=== PATIENT | male | born 1945 | race Caucasian/White ===

== ENCOUNTER 2017-10-14 07:46 | Emergency (ER) | payer MEDICARE, SELFPAY ==
[2017-10-14] VITALS (15 sets, daily range): BP systolic 76–105; BP diastolic 39–59; PULSE 92–103; RESP 9–23; TEMP 36.6–36.7; O2SAT 95–100; BMI 31.4
--- NOTE | 2017-10-14 07:55 | ED.WEAKNESS ---
HPI - Weakness General Chief complaint: Weakness Stated complaint: Dizzy Time Seen by Provider: 10/14/17 07:48 Source: patient and family Mode of arrival: EMS Limitations: no limitations History of Present Illness HPI Narrative: 72-year-old male currently undergoing chemotherapy treatment for pancreatic cancer here for evaluation of nausea vomiting and diarrhea last evening. Patient states that his last dose of chemotherapy was 2 weeks ago. He states that last evening he was at his normal state of health with his normal abdominal pain and states that last evening had 1 episode of vomiting that he sets was ?dark? and multiple episodes of ?dark? diarrhea. Called EMS this morning because he was feeling weak. EMS report that his systolic blood pressure was 70 upon their arrival. He did receive fluids prior to their arrival here in the emergency department. Patient was scheduled to receive chemotherapy today [facility]. Related Data Home Medications Medication Instructions Recorded Confirmed ASPIRIN (#ASPIR 81) 81 mg PO Q DAY #0 08/15/11 08/31/17 GLUC CORRIGAN DIPO CH/ISABEL CORRIGAN/C/FRANKLIN 1 cap PO BID #0 08/15/11 08/31/17 (Glucosamine-Chondroitin Capsul) Multivitamin, Minerals, and 1 tab PO Q DAY #0 08/15/11 08/31/17 (#CENTRUM SILVER) [FISH OIL] 1,400 mg PO QDAY #0 08/15/11 08/31/17 ranitidine HCl 150 mg PO QDAYP PRN #0 04/28/16 08/31/17 [id number] [Creon] 1 ecc PO #0 03/03/17 08/31/17 Previous Rx's Medication Instructions Recorded fluticasone 2 spray INTRANASAL QDAY #1 bot 04/28/16 clotrimazole 1 gm TOPICAL BID #14.1 gm 12/07/16 Glucose: Home Monitor ea 5XD #1 05/05/17 Galliano ea 5XD #450 05/05/17 Test Strips - Freestyle 0 item 5XD #450 05/05/17 lisinopril 20 mg PO QDAY #90 tab 05/05/17 metformin 1,000 mg PO BIDCC #180 tab 05/05/17 atorvastatin [Lipitor] 20 mg PO QDAY #90 tab 05/06/17 Lancets 0 dev SEE INSTRUCTIONS #450 05/08/17 insulin aspart U-100 [Novolog 10 unit SQ TID #1 box 05/25/17 Flexpen U-100 Insulin] insulin detemir U-100 [Levemir 90 u SQ QDAY #27 syr 05/25/17 FlexTouch U-100 Insuln] polyethylene glycol 3350 17 17 gram PO DAILY 30 Days #510 gram 08/31/17 gram/dose oral powder tamsulosin 0.4 mg capsule 0.4 mg PO Q24H #30 cap 08/31/17 Allergies Allergy/AdvReac Type Severity Reaction Status Date / Time Sulfa (Sulfonamide Allergy Mild 40yrs ago, Verified 08/31/17 09:37 Antibiotics) unknown Review of Systems Review of Systems All systems reviewed & are unremarkable except as noted in HPI and below Constitutional Denies chills, Reports fatigue, Denies fever(s), Denies headache(s), Reports lethargy and Reports weakness Eyes Denies blurry vision and Denies irritation ENT Ears, Nose, Mouth, and Throat: Denies change in voice, Denies vertigo, Denies dizziness, Denies headache(s), Denies neck pain and Denies sore throat Cardiovascular Denies chest pain, Denies syncope, Denies irregular heart rhythm, Denies lightheadedness, Denies palpitations, Denies dyspnea, Denies dyspnea on exertion and Denies orthopnea Respiratory Denies cough, Denies dyspnea, Denies dyspnea on exertion and Denies wheezing Gastrointestinal Gastrointestinal: Reports abdominal pain, Reports melena, Reports change in stool character, Reports diarrhea, Reports nausea and Reports vomiting Genitourinary Denies hematuria, Denies flank pain, Denies urinary incontinence and Denies urinary urgency Musculoskeletal Denies myalgias and Denies neck pain Integumentary/Breasts Denies pruritus, Denies erythema, Denies rash and Denies wounds Neurologic Denies behavioral changes, Denies vertigo, Denies dizziness, Denies syncope, Denies headache(s) and Reports weakness Psychiatric Denies behavioral changes Endocrine Reports fatigue and Denies palpitations Hematologic/Lymphatic Denies easy bleeding and Denies easy bruising Allergic/Immunologic Denies urticaria and Denies wheezing PFSH Surgical History History of cataract removal with insertion of prosthetic lens Status post bunionectomy Status post colonoscopy Family History Brother Diabetes mellitus Father Congestive heart failure Diabetes mellitus Heart disease Grandfather Heart disease Grandmother Cancer Mother Age: 92 Hypertension Grandfather Hypertension Stroke Sister Diabetes mellitus Social History Smoking Status: Never smoker Exam Initial Vital Signs Initial Vital Signs: Vital Signs Temperature 97.8 F 10/14/17 07:50 Pulse Rate 100 H 10/14/17 07:50 Respiratory Rate 19 10/14/17 07:50 Blood Pressure 105/55 L 10/14/17 07:50 Pulse Oximetry 100 10/14/17 07:50 Const General: cooperative and well developed Nutritional Appearance: well nourished Orientation: alert, awake, oriented x3 and not confused HENMT Head: normocephalic and atraumatic Ears: hearing grossly normal bilaterally Nose: external nose normal Face and sinus: normal facial exam Mouth: oral mucosae normal and moist mucous membranes Chest Chest: normal inspection of the chest Resp Effort & Inspection: normal respiratory effort, able to speak in complete sentences, no respiratory distress and no use of accessory muscles Auscultation: clear to auscultation bilaterally, no rales, no rhonchi and no wheezes Cardio Rate: regular rate Rhythm: regular rhythm Heart Sounds: no click, no gallops, no murmurs and no rubs Pulses: normal peripheral pulses GI Inspection: non-distended Palpation: soft, No firm, No guarding and tender (Diffuse) Back/Spine/Pelvis Back: No CVA tenderness Skin General: no rashes or lesions noted, No jaundice and No petechiae Neuro General: alert, awake and oriented x3 Cognition: normal cognition Speech: speech normal Extrem General: full ROM, no clubbing, cyanosis or edema, no pedal edema and no calf tenderness Psych Appearance: grossly normal and well kempt Mood: congruent mood Attitude: cooperative Course Orders Ordered: ED Orders 10/14/17 07:49 EKG-12 Lead Routine 10/14/17 07:53 Basic Metabolic Panel Stat Complete Blood Count AUTO DIFF Stat Hepatic (Liver) Panel Stat Lipase Stat Partial Thromboplastin Time Stat Prothrombin Time INR Stat 10/14/17 08:15 Ammonia (NH3) Stat Lactate (Lactic Acid) Stat Packed Cells Stat Type and Screen Stat Sodium Chloride (Normal Saline 0.9%) 1,000 mls @ 500 mls/hr IV BOLUS ONE Stop: 10/14/17 09:53 Last Admin: 10/14/17 08:29 Dose: 500 mls/hr Pantoprazole Sodium 80 mg/ (Sodium Chloride) 100 mls @ 10 mls/hr IV NOW ONE Stop: 10/14/17 18:06 Last Admin: 10/14/17 08:30 Dose: 10 mls/hr Pantoprazole Sodium 80 mg/ (Sodium Chloride) 100 mls @ 10 mls/hr IV CONT EMEKA Last Admin: 10/14/17 08:30 Dose: Not Given Discontinued Medications Ondansetron HCl (Zofran) 4 mg IV NOW ONE Stop: 10/14/17 08:08 Last Admin: 10/14/17 08:29 Dose: 4 mg Vital Signs - 8 hr 10/14/17 07:50 10/14/17 08:15 Temperature 97.8 F Pulse Rate 100 H 100 H Respiratory Rate 19 Blood Pressure 105/55 L Blood Pressure [Right Arm] 104/52 L Pulse Oximetry 100 99 MDM - Weakness Lab Data Result diagrams: 10/14/17 07:53 10/14/17 07:53 Lab Results 10/14/17 10/14/17 10/14/17 Range/Units 07:53 07:53 07:53 WBC 7.9 (4.5-11.0) X10^3/uL RBC 3.44 L (4.5-5.9) X10^6/uL Hgb 10.2 L (13.5-17.5) g/dL Hct 30.5 L (41-53) % MCV 88.7 (80-100) fL MCH 29.7 (26-34) PG MCHC 33.5 (30-36) % RDW 14.1 (11.6-14.8) % Plt Count 276 (150-400) X10^3/uL Neut % (Auto) 81.9 H (50-75) % Lymph % (Auto) 12.0 L (25-40) % [place] % (Auto) 5.8 (3-14) % Eos % (Auto) 0.0 L (2-4) % Baso % (Auto) 0.3 (0-2) % Neut # (Auto) 6500 H (4740-2458) /uL PT 12.3 (10.1-12.7) SECONDS INR 1.1 (0.9-1.3) APTT 29 D (26.4-36.2) SECONDS Sodium 131 L (137-145) mmol/L Potassium 5.0 (3.4-5.1) mmol/L Chloride 99 (98-107) mmol/L Carbon Dioxide 24 (22-32) mmol/L BUN 28 H (9-20) mg/dL Creatinine 0.60 L (0.66-1.25) mg/dL Estimated GFR > 60.0 (>60) mL/min BUN/Creatinine Ratio 46.7 H (6-22) Glucose 303 H (80-110) mg/dL Lactate (0.7-2.1) mmol/L Calcium 8.8 (8.4-10.2) mg/dL Total Bilirubin (0.2-1.3) mg/dL Conjugated Bilirubin (0.0-0.3) md/dL Unconjugated Bilirubin (0.0-1.1) mg/dL AST (17-59) IU/L ALT (21-72) IU/L Alkaline Phosphatase (38-126) U/L Ammonia (9-30) umol/L Total Protein (6.3-8.2) g/dL Albumin (3.5-5.0) g/dL Globulin (1.7-4.1) g/dL Albumin/Globulin Ratio (1.0-2.8) Lipase (23-300) U/L Crossmatch 10/14/17 10/14/17 10/14/17 Range/Units 07:53 08:15 08:15 WBC (4.5-11.0) X10^3/uL RBC (4.5-5.9) X10^6/uL Hgb (13.5-17.5) g/dL Hct (41-53) % MCV (80-100) fL MCH (26-34) PG MCHC (30-36) % RDW (11.6-14.8) % Plt Count (150-400) X10^3/uL Neut % (Auto) (50-75) % Lymph % (Auto) (25-40) % [place] % (Auto) (3-14) % Eos % (Auto) (2-4) % Baso % (Auto) (0-2) % Neut # (Auto) (6926-2363) /uL PT (10.1-12.7) SECONDS INR (0.9-1.3) APTT (26.4-36.2) SECONDS Sodium (137-145) mmol/L Potassium (3.4-5.1) mmol/L Chloride (98-107) mmol/L Carbon Dioxide (22-32) mmol/L BUN (9-20) mg/dL Creatinine (0.66-1.25) mg/dL Estimated GFR (>60) mL/min BUN/Creatinine Ratio (6-22) Glucose (80-110) mg/dL Lactate 1.4 (0.7-2.1) mmol/L Calcium (8.4-10.2) mg/dL Total Bilirubin 0.5 (0.2-1.3) mg/dL Conjugated Bilirubin 0.0 (0.0-0.3) md/dL Unconjugated Bilirubin 0.2 (0.0-1.1) mg/dL AST 18 (17-59) IU/L ALT 43 (21-72) IU/L Alkaline Phosphatase 95 (38-126) U/L Ammonia < 9.0 L (9-30) umol/L Total Protein 5.0 L (6.3-8.2) g/dL Albumin 2.9 L (3.5-5.0) g/dL Globulin 2.1 (1.7-4.1) g/dL Albumin/Globulin Ratio 1.4 (1.0-2.8) Lipase < 10 L (23-300) U/L Crossmatch 10/14/17 Range/Units 08:15 WBC (4.5-11.0) X10^3/uL RBC (4.5-5.9) X10^6/uL Hgb (13.5-17.5) g/dL Hct (41-53) % MCV (80-100) fL MCH (26-34) PG MCHC (30-36) % RDW (11.6-14.8) % Plt Count (150-400) X10^3/uL Neut % (Auto) (50-75) % Lymph % (Auto) (25-40) % [place] % (Auto) (3-14) % Eos % (Auto) (2-4) % Baso % (Auto) (0-2) % Neut # (Auto) (6709-1520) /uL PT (10.1-12.7) SECONDS INR (0.9-1.3) APTT (26.4-36.2) SECONDS Sodium (137-145) mmol/L Potassium (3.4-5.1) mmol/L Chloride (98-107) mmol/L Carbon Dioxide (22-32) mmol/L BUN (9-20) mg/dL Creatinine (0.66-1.25) mg/dL Estimated GFR (>60) mL/min BUN/Creatinine Ratio (6-22) Glucose (80-110) mg/dL Lactate (0.7-2.1) mmol/L Calcium (8.4-10.2) mg/dL Total Bilirubin (0.2-1.3) mg/dL Conjugated Bilirubin (0.0-0.3) md/dL Unconjugated Bilirubin (0.0-1.1) mg/dL AST (17-59) IU/L ALT (21-72) IU/L Alkaline Phosphatase (38-126) U/L Ammonia (9-30) umol/L Total Protein (6.3-8.2) g/dL Albumin (3.5-5.0) g/dL Globulin (1.7-4.1) g/dL Albumin/Globulin Ratio (1.0-2.8) Lipase (23-300) U/L Crossmatch See Detail ECG Data Attestation: I personally reviewed and interpreted this ECG as follows: Prior ECG tracings: not available for review Interpretation: Time 0749 hr Sinus rhythm Ventricular rate in 99 Normal axis Normal intervals Normal QRS No ST T wave changes MDM Narrative Medical decision making narrative: Patient arrived with a systolic blood pressure of 105. Heart rate in the high 90s. Did vomit red material this morning. Did not gastroccult this. Given his history and physical I suspect that this is a upper GI bleed. Patient not in respiratory distress. Was given Zofran. H and H 02/23. Started on Protonix. Patient has been stable here in the emergency department. Has had a couple more episodes of vomiting however states that he feels much better now. I discussed the case with Dr. Wylie with Internal Medicine at [facility] who accepts the patient in transfer. Will hold on blood transfusion for now. Patient and were informed of plan. They expressed understanding and agreement. Discharge Plan Departure Prescriptions: No Action ASPIRIN (#ASPIR 81) 81 mg PO Q DAY Qty: 0 RF: 0 GLUC CORRIGAN DIPO CH/ISABEL CORRIGAN/C/FRANKLIN (Glucosamine-Chondroitin Capsul) 1 cap PO BID Qty: 0 RF: 0 [FISH OIL] 1,400 mg PO QDAY Qty: 0 RF: 0 Multivitamin, Minerals, and (#CENTRUM SILVER) 1 tab PO Q DAY Qty: 0 RF: 0 fluticasone 16 GM spray,suspension 2 spray Intranasal QDAY Qty: 1 RF: 3 ranitidine HCl 150 MG tablet 150 mg PO QDAYP PRNQty: 0 RF: 0 clotrimazole 1 % cream 1 gm Topical BID Qty: 14.1 RF: 1 [id number] [Creon] 36,000 UNITS capsule,delayed release(DR/EC) 1 ecc PO Qty: 0 RF: 0 lisinopril 20 MG tablet 20 mg PO QDAY Qty: 90 RF: 3 metformin 1,000 MG tablet 1,000 mg PO BIDCC Qty: 180 RF: 3 Galliano 5XD Qty: 450 RF: 3 Glucose: Home Monitor 5XD Qty: 1 RF: 0 Test Strips - Freestyle 5XD Qty: 450 RF: 3 atorvastatin [Lipitor] 20 MG tablet 20 mg PO QDAY Qty: 90 RF: 3 Lancets SEE INSTRUCTIONS Qty: 450 RF: 3 insulin aspart U-100 [Novolog Flexpen U-100 Insulin] 100 UNIT/1 ML insulin pen 10 unit SQ TID Qty: 1 RF: 3 insulin detemir U-100 [Levemir FlexTouch U-100 Insuln] 100 UNIT/1 ML insulin pen 90 u SQ QDAY Qty: 27 RF: 3 polyethylene glycol 3350 [Miralax] 17 gram/dose powder 17 gram PO DAILY 30 Days Qty: 510 RF: 1 tamsulosin [Flomax] 0.4 mg capsule,extended release 24hr 0.4 mg PO Q24H Qty: 30 RF: 3
[2017-10-14 08:07] LABS: Add Manual Diff / Slide Review NO; Basophils Percent Auto 0.3 % (0-2); Hematocrit 30.5 % (41-53); Hemoglobin 10.2 g/dL (13.5-17.5); INR 1.1 (0.9-1.3); Mean Corpuscular HGB Conc 33.5 % (30-36); Mean Corpuscular Hemoglobin 29.7 PG (26-34); Mean Corpuscular Volume 88.7 fL (80-100); Monocytes Percent Auto 5.8 % (3-14); Neutrophils Absolute Auto 6500 /uL (3000-5900); Neutrophils Percent Auto 81.9 % (50-75); Platelet Count 276 X10^3/uL (150-400); Prothrombin Time 12.3 SECONDS (10.1-12.7); Red Blood Cell Count 3.44 X10^6/uL (4.5-5.9); Red Cell Distribution Width 14.1 % (11.6-14.8); White Blood Cell Count 7.9 X10^3/uL (4.5-11.0)
[2017-10-14 08:10] LABS: PTT Partial Thromboplastin Tim 29 SECONDS (26.4-36.2)
[2017-10-14 08:13] LABS: BUN Creatinine Ratio 46.7 (6-22); Blood Urea Nitrogen 28 mg/dL (9-20); Calcium 8.8 mg/dL (8.4-10.2); Carbon Dioxide 24 mmol/L (22-32); Chloride 99 mmol/L (98-107); Estimated Glomerular Filt Rate > 60.0 mL/min (>60); Glucose 303 mg/dL (80-110); HEMOLYSIS 30 (0-50); Sodium 131 mmol/L (137-145)
[2017-10-14 08:14] LABS: Alanine Aminotransferase 43 IU/L (21-72); Albumin 2.9 g/dL (3.5-5.0); Albumin Globulin Ratio 1.4 (1.0-2.8); Alkaline Phosphatase 95 U/L (38-126); Aspartate Aminotransferase 18 IU/L (17-59); Bilirubin Total 0.5 mg/dL (0.2-1.3); Bilirubin Unconjugated 0.2 mg/dL (0.0-1.1); Globulin 2.1 g/dL (1.7-4.1); HEMOLYSIS 30 (0-50); Lipase < 10 U/L (23-300)
[2017-10-14] MEDS: ONDANSETRON 4 MG/2 ML INJ IV (08:29)
[2017-10-14] MEDS: SODIUM CHLORIDE 0.9% 1,000 ML 500 ML IV (08:29)
[2017-10-14] MEDS: PANTOPRAZOLE 80 MG in SODIUM CHLORIDE 0.9% 100 ML 10 ML IV (08:30)
[2017-10-14 08:39] LABS: Lactate (Lactic Acid) 1.4 mmol/L (0.7-2.1)
[2017-10-14 08:40] LABS: Ammonia (NH3) < 9.0 umol/L (9-30)
--- NOTE | 2017-10-14 09:07 | PC.NURSE ---
1:1 care since arrival. Hypotensive. Actively having BRB emesis. Meds helping this
[2017-10-14] MEDS: HYDROMORPHONE 0.5 MG INJ IV (09:17)
--- NOTE | 2017-10-14 09:51 | PC.NURSE ---
Per , states not to start blood. Per req not.
--- NOTE | 2017-10-14 10:03 | PC.NURSE ---
Patient on his L side with BP on his R arm. Patient with Lab. will recheck when patient on back
[2017-10-14 10:14] LABS: Hematocrit 27.6 % (41-53); Hemoglobin 9.2 g/dL (13.5-17.5)
--- NOTE | 2017-10-14 10:36 | PC.NURSE ---
Per , Start 1 unit of PRBC's now for transport
--- NOTE | 2017-10-14 11:04 | PC.NURSE ---
To transfer to . Blood running. Stable.
== END 2017-10-14 11:20 | disposition short-term general hospital (02) ==
PROVIDERS: Emergency Provider Emergency Medicine; PCP Family Medicine
DX: K92.2 Gastrointestinal hemorrhage, unspecified (principal)
CPT/HCPCS: 36000; 36415; 36430; 36591; 80048; 80076; 82140; 83605; 83690; 85014; 85018; 85025; 85610; 85730; 86850; 86900; 86901; 93005; 93010; 93041; 96365; 96366; 96375; 99285; 99291; 99292; P9016; C9113; J1170; J2405

== ENCOUNTER → 2017-12-24 15:30 | Oncology outpatient (ONC) | payer MEDICARE, SELFPAY ==
[2017-10-02 15:51] VITALS: BP 125/73; PULSE 72; RESP 16; TEMP 37; O2SAT 100
--- NOTE | 2017-10-15 12:25 | PC.NURSE ---
Pt due to come for pump disconnect 10/16/17 from outside facility. called to report he was hospitalized and did not receive his chemo so did not have pump connected.Appt cancelled
== END ==
PROVIDERS: PCP Family Medicine; Visit Provider Family Medicine
DX: Z45.2 Encounter for adjustment and management of vascular access device (principal); C25.9 Malignant neoplasm of pancreas, unspecified
CPT/HCPCS: 96523

== ENCOUNTER 2018-01-08 15:48 | Inpatient (IN) | payer MEDICARE, SELFPAY ==
[2018-01-08] VITALS (8 sets, daily range): BP systolic 67–133; BP diastolic 42–59; PULSE 122–133; RESP 22–32; TEMP 35.9–36.7; O2SAT 95–98; BMI 28.9
--- NOTE | 2018-01-08 16:09 | ED.ABDPAIN ---
HPI - Abdominal Pain General Chief Complaint: Abdominal Pain Stated Complaint: Pancreatic Cancer, Increased pain / confusion Time Seen by Provider: 01/08/18 16:08 Source: patient, family and EMS Mode of arrival: EMS History of Present Illness HPI narrative: Patient is a 72-year-old male with end-stage pancreatic cancer. He is brought in for increased abdominal pain. There is talk of hospice per family but he has not yet admitted to hospice. He had paracentesis 2 days ago with minimal relief, family feels like his abdomen has reaccumulated all the fluid quite quickly. He has had recurrent GI bleeding which she was sent down to [facility]. Family states that they think they have this under control. They deny any blood in stool or hematemesis. He seems to be declining rather quickly over the last 2 days. Today his pain is much more out of control he is hypotensive and tachycardic as well. Blood pressure for EMS systolic in the 60s of fluid was started. MD complaint: abdominal pain Related Data Home Medications Medication Instructions Recorded Confirmed Centrum Silver 1 tab PO Q DAY #0 08/15/11 12/21/17 [FISH OIL] 1,400 mg PO QDAY #0 08/15/11 12/21/17 aspirin 81 mg PO DAILY #0 08/15/11 12/21/17 ranitidine HCl 150 mg PO QDAYP PRN #0 04/28/16 12/21/17 Glucose: Home Monitor 1 ea MISCELLANEOUS 5XD 10/14/17 12/21/17 [place] 1 ea 5XD 10/14/17 12/21/17 dexamethasone 1 tab PO DIRECTED 10/14/17 12/21/17 insulin detemir U-100 [Levemir 45 units SQ QPM 10/14/17 12/21/17 FlexTouch U-100 Insuln] [id number]-jshrqqk [Creon] 1 dose PO DIRECTED 10/14/17 12/21/17 lorazepam 0.5 mg PO DIRECTED 10/14/17 12/21/17 ondansetron 1 tab TRANSLINGUAL Q8H PRN 10/14/17 12/21/17 prochlorperazine maleate 1 tab PO Q6H PRN 10/14/17 12/21/17 [id number]-cdokdbub-stihzqs 1 cap PO QD-TID PRN 10/30/17 12/21/17 36,000-114,000-180,000 unit capsule,delay rel polyethylene glycol 3350 17 17 gram PO DAILY gram 10/30/17 12/21/17 gram/dose oral powder polyethylene glycol powder each MISC 10/30/17 12/21/17 simethicone 125 mg capsule 125 mg PO BID-QID PRN 10/30/17 12/21/17 acetaminophen 500 mg tablet 500 mg PO Q4-6H PRN tab 12/21/17 12/21/17 bethanechol chloride 10 mg tablet 10 mg PO TID tab 12/21/17 12/21/17 finasteride 5 mg tablet 5 mg PO DAILY 12/21/17 12/21/17 hydrocodone 5 mg-acetaminophen 325 1 tab PO Q4-6H PRN 12/21/17 12/21/17 mg tablet Previous Rx's Medication Instructions Recorded fluticasone 2 spray INTRANASAL QDAY #1 bot 04/28/16 clotrimazole 1 gm TOPICAL BID #14.1 gm 12/07/16 Test Strips - Freestyle 0 item 5XD #450 05/05/17 lisinopril 20 mg PO QDAY #90 tab 05/05/17 metformin 1,000 mg PO BIDCC #180 tab 05/05/17 atorvastatin [Lipitor] 20 mg PO QDAY #90 tab 05/06/17 Lancets 0 dev SEE INSTRUCTIONS #450 05/08/17 tamsulosin 0.4 mg capsule 0.4 mg PO Q24H #30 cap 08/31/17 pantoprazole 40 mg tablet,delayed 40 mg PO BID #14 tab 11/04/17 release sucralfate 1 gram tablet 1 gram PO Q6H #28 tab 11/04/17 insulin aspart U-100 100 unit/mL 10 unit SUBCUT TID #15 ml 01/04/18 subcutaneous pen Allergies Allergy/AdvReac Type Severity Reaction Status Date / Time Sulfa (Sulfonamide Allergy Mild 40yrs ago, Verified 01/08/18 15:55 Antibiotics) unknown morphine AdvReac Hallucinati Verified 01/08/18 15:55 ng Review of Systems Review of Systems All systems reviewed & are unremarkable except as noted in HPI and below Constitutional Denies chills and Denies fatigue Cardiovascular Denies chest pain Gastrointestinal Gastrointestinal: Reports as per HPI and Reports abdominal pain Integumentary/Breasts Denies pruritus, Denies erythema, Denies rash and Denies wounds Neurologic Denies confusion Psychiatric Denies confusion Endocrine Denies fatigue [facility] Medical History Diabetes mellitus (Chronic ~2004) Fractures (Chronic ~2004) Hyperlipidemia (Chronic) Hypertension (Chronic) Recurrent sinusitis (Chronic) Shoulder pain (Chronic ~2013) Chicken pox (Resolved ~1955) Measles (Resolved ~1953) Mumps (Resolved ~1952) Rheumatic fever (Resolved ~1950) Surgical History Anesthesia (Resolved) Status post bunionectomy (Resolved ~1997) Tibial plateau fracture (Resolved ~2005) History of cataract removal with insertion of prosthetic lens Status post colonoscopy Family History: Reviewed 01/08/18 by Jonathan Estes MD Social History household members: spouse Smoking Status: Former smoker Exam Initial Vital Signs Initial Vital Signs: Vital Signs Temperature 96.7 F L 01/08/18 15:52 Pulse Rate 133 H 01/08/18 15:52 Respiratory Rate 32 H 01/08/18 15:52 Blood Pressure 82/56 L 01/08/18 15:52 Pulse Oximetry 95 01/08/18 15:52 Const General: cooperative, in distress (Appears in pain), frail appearing and ill appearing Orientation: alert and awake HENAR Head: normal to inspection and normocephalic Eyes General: appearance normal, both eyes and all related structures Neck Neck: normal visual inspection, full ROM and no meningeal signs Chest Chest: normal inspection of the chest Resp Effort & Inspection: normal respiratory effort Auscultation: clear to auscultation bilaterally Cardio Rate: tachycardic Heart Sounds: S1 normal and S2 normal GI Inspection: normal to inspection Palpation: ascites (Distended grossly tender) Skin General: no rashes or lesions noted, elasticity normal and turgor normal Neuro General: alert and awake Extrem General: normal to inspection and full ROM Course Orders Ordered: ED Orders 01/08/18 17:33 Education, smoking cessation ONGOING Hydromorphone HCl (Dilaudid) 0.5 mg IV Q2HR PRN PRN Reason: Pain, Moderate (4-6) Last Admin: 01/08/18 16:10 Dose: 0.5 mg HYDROMORPHONE [employer]ING [employer] (Dilaudid 6 Mg/30 Ml) 6 mg in 30 mls @ 0.5 mls/hr IV Q8HR EMEKA Lorazepam (Ativan) 1 mg IV Q4HR PRN PRN Reason: Anxiety Naloxone HCl (Narcan) 0.2 mg IV Q2MIN PRN PRN Reason: Opiate Reversal Naloxone HCl (Narcan) 0.2 mg IV Q2MIN PRN; Protocol PRN Reason: Opiate Reversal Ondansetron HCl (Zofran) 4 mg IV Q6HR PRN PRN Reason: Nausea And Vomiting Discontinued Medications Ondansetron HCl (Zofran) 4 mg IV NOW ONE Stop: 01/08/18 16:12 Last Admin: 01/08/18 16:11 Dose: 4 mg Vital Signs - 8 hr 01/08/18 15:52 01/08/18 16:20 01/08/18 16:30 Temperature 96.7 F L Pulse Rate 133 H 131 H 128 H Respiratory Rate 32 H 28 H 32 H Blood Pressure 82/56 L Blood Pressure [Right Arm] 86/59 L 81/46 L Pulse Oximetry 95 98 01/08/18 16:45 01/08/18 17:00 01/08/18 17:12 Temperature Pulse Rate 122 H 123 H 125 H Respiratory Rate 32 H 31 H 22 Blood Pressure Blood Pressure [Right Arm] 92/51 L 67/45 L 76/42 L Pulse Oximetry 98 MDM - Abdominal Pain MDM Narrative Medical decision making narrative: Patient remains hypotensive tachycardic. Dilaudid does seem to make him more comfortable. I did speak with family about goals of care. Comfort only. They are aware of grave prognosis. Dr. Estes is in the ED to speak and evaluate patient. Discharge Plan Departure Patient Disposition: Admitted As Inpatient Clinical Impression: Metastasis from pancreatic cancer Discharge Date/Time: 01/08/18 17:22 Interventions: ED Discharge Assessment Last Done: 01/08/18 17:22 Admit Date/Time: 01/08/18 17:12 Admit Provider: Jonathan Estes
[2018-01-08] MEDS: HYDROMORPHONE 1 MG INJ 0.5 MG IV (16:10)
[2018-01-08] MEDS: ONDANSETRON 4 MG/2 ML INJ IV ×2 (16:11→22:06)
--- NOTE | 2018-01-08 16:24 | PC.NURSE ---
discussed w/ and children goals of care. Pt is DNR, no further curative treatment. Pt is comfort measures only. Medicated for pain and nausea. Family in agreement w/ discontinue iv fluids / monitoring and using pain / nausea as the concern at this time.
--- NOTE | 2018-01-08 17:25 | PC.NURSE ---
Monitoring discontinued. Dr. Estes in to see patient. Pt appears more comfortable.
--- NOTE | 2018-01-08 17:45 | P.HP_ITS ---
History of Present Illness Date Patient Seen: 01/08/18 Time Patient Seen: 17:00 Chief complaint: Pancreatic Cancer, Increased pain / confusion Narrative: 72-year-old male patient longstanding patient of mine over the last 12 years. Patient over the last year and a half was diagnosed with pancreatic cancer. He has undergone chemotherapy biliary stenting in treatment for this. Despite his maximal medical therapy with Oncology pancreatic specialist down at he has had quite a rough go lately. As of about a week ago. He has had increasing abdominal distension and significant abdominal pain. They elected no longer to treat with chemotherapy as he was too weak. His last paracentesis 48 hr ago provided minimal relief in his abdomen felt still painful and distended. Over the past 48 hr he has had difficulty with increasing pain increasing secretions coughing and phlegm. Today he became very weak and listless. His family states he was a little bit confused. He has had ongoing abdominal pain any now says it 7/10 on the pain scale. On my evaluation of the patient in the emergency room he is quite tachypneic. He is tachycardic. He has got a weak cough. And he is vomiting up by bile. His is at his bedside as well as his daughter son and [id number]. We have had a number of conversations in the past about his advance care wishes. And office visit 2 weeks ago patient at that time was not ready for hospice although we have had those ongoing discussions and have discussed multiple times his palliative care and wishes. Family care conference was initiated in the emergency room to discuss and determine what the best next plan for him is. Discussed about aggressive measures transfer the patient to be . They felt maybe this was not necessary as well as the patient. We discussed about the further evaluation with laboratory testing and x-ray testing IV fluids etc. They are also aware that his recent pancreatic specialist oncologist down a of told him that he has in the advanced stages of pancreatic cancer and they are running out of treatment options. After discussion with patient family and on review of his healthcare wishes. The election was made to proceed with hospitalization due to his significant secretions vomited up bile weakness and low blood pressure for further comfort which there and hot able to provide a home. Patient History Medical History Diabetes mellitus (Chronic ~2004) Fractures (Chronic ~2004) Hyperlipidemia (Chronic) Hypertension (Chronic) Recurrent sinusitis (Chronic) Shoulder pain (Chronic ~2013) Chicken pox (Resolved ~1955) Measles (Resolved ~1953) Mumps (Resolved ~1952) Rheumatic fever (Resolved ~1950) Surgical History Anesthesia (Resolved) Status post bunionectomy (Resolved ~1997) Tibial plateau fracture (Resolved ~2005) History of cataract removal with insertion of prosthetic lens Status post colonoscopy Family & Social History Family History: Reviewed 01/08/18 by Jonathan Estes MD Safety & Behavioral: Feels Safe in Current Yes Environment Been Physically Hurt or No Threatened By a Person Tobacco & Substance use: Smoking Status Never smoker alcohol intake frequency 0-2 drinks per day Substance Use Type does not use Meds Home Medications Medication Instructions Recorded Confirmed Type Centrum Silver 1 tab PO Q DAY #0 08/15/11 12/21/17 History [FISH OIL] 1,400 mg PO QDAY #0 08/15/11 12/21/17 History aspirin 81 mg PO DAILY #0 08/15/11 12/21/17 History fluticasone 2 spray INTRANASAL QDAY #1 bot 04/28/16 12/21/17 Rx ranitidine HCl 150 mg PO QDAYP PRN #0 04/28/16 12/21/17 History clotrimazole 1 gm TOPICAL BID #14.1 gm 12/07/16 12/21/17 Rx Test Strips - Freestyle 0 item 5XD #450 05/05/17 12/21/17 Rx lisinopril 20 mg PO QDAY #90 tab 05/05/17 12/21/17 Rx metformin 1,000 mg PO BIDCC #180 tab 05/05/17 12/21/17 Rx atorvastatin [Lipitor] 20 mg PO QDAY #90 tab 05/06/17 12/21/17 Rx Lancets 0 dev SEE INSTRUCTIONS #450 05/08/17 12/21/17 Rx tamsulosin 0.4 mg capsule 0.4 mg PO Q24H #30 cap 08/31/17 12/21/17 Rx Glucose: Home Monitor 1 ea MISCELLANEOUS 5XD 10/14/17 12/21/17 History [place] 1 ea 5XD 10/14/17 12/21/17 History dexamethasone 1 tab PO DIRECTED 10/14/17 12/21/17 History insulin detemir U-100 [Levemir 45 units SQ QPM 10/14/17 12/21/17 History FlexTouch U-100 Insuln] [id number] [Creon] 1 dose PO DIRECTED 10/14/17 12/21/17 History lorazepam 0.5 mg PO DIRECTED 10/14/17 12/21/17 History ondansetron 1 tab TRANSLINGUAL Q8H PRN 10/14/17 12/21/17 History prochlorperazine maleate 1 tab PO Q6H PRN 10/14/17 12/21/17 History ysjkfz-ncpeohzk-gyqyonj 1 cap PO QD-TID PRN 10/30/17 12/21/17 History 36,000-114,000-180,000 unit capsule,delay rel polyethylene glycol 3350 17 17 gram PO DAILY gram 10/30/17 12/21/17 History gram/dose oral powder polyethylene glycol powder each MISC 10/30/17 12/21/17 History simethicone 125 mg capsule 125 mg PO BID-QID PRN 10/30/17 12/21/17 History pantoprazole 40 mg tablet,delayed 40 mg PO BID #14 tab 11/04/17 12/21/17 Rx release sucralfate 1 gram tablet 1 gram PO Q6H #28 tab 11/04/17 12/21/17 Rx acetaminophen 500 mg tablet 500 mg PO Q4-6H PRN tab 12/21/17 12/21/17 History bethanechol chloride 10 mg tablet 10 mg PO TID tab 12/21/17 12/21/17 History finasteride 5 mg tablet 5 mg PO DAILY 12/21/17 12/21/17 History hydrocodone 5 mg-acetaminophen 325 1 tab PO Q4-6H PRN 12/21/17 12/21/17 History mg tablet insulin aspart U-100 100 unit/mL 10 unit SUBCUT TID #15 ml 01/04/18 Rx subcutaneous pen Allergies Allergy/AdvReac Type Severity Reaction Status Date / Time Sulfa (Sulfonamide Allergy Mild 40yrs ago, Verified 01/08/18 15:55 Antibiotics) unknown morphine AdvReac Hallucinati Verified 01/08/18 15:55 ng Exam Vital Signs (past 8 hours): - 01/08/18 15:52 01/08/18 16:20 01/08/18 16:30 Temperature 96.7 F L Pulse Rate 133 H 131 H 128 H Respiratory Rate 32 H 28 H 32 H Blood Pressure 82/56 L Blood Pressure [Right Arm] 86/59 L 81/46 L Pulse Oximetry 95 98 01/08/18 16:45 01/08/18 17:00 01/08/18 17:12 Temperature Pulse Rate 122 H 123 H 125 H Respiratory Rate 32 H 31 H 22 Blood Pressure Blood Pressure [Right Arm] 92/51 L 67/45 L 76/42 L Pulse Oximetry 98 Oxygen Delivery Method Room Air Narrative Exam Narrative: Gen.: Alert recognizes me in able to carry on a conversation very weak tachypneic and very pale HEENT: Pupils are icteric. Oral mucosa is dry. He has vomiting bile intermittently during the examination Cardio: S1-S2 regular rhythm tachycardic Respiratory: Increased work of breathing scattered rhonchi throughout the lungs Abdomen: Abdomen is significantly distended. Exquisitely tender and patient does not want me to examine it. Concerning for an intra-abdominal infection versus strangulation or incarceration Extremities: Generally weak Neurologic: No focal deficits Assessment & Plan Plan: Assessment/Plan Narrative: Metastatic pancreatic cancer. Obstructive biliary jaundice Bowel obstruction with vomiting bile due to pancreatic cancer Abdominal pain severe to above Other diagnosis is include diabetes type 2 hyperlipidemia obesity. Plan family care conference was held with family as well as patient. Approximately 45 min was spent discussing with them their wishes and desires about further care. And due to his severity of his condition including his tachycardia hypotension and bilious vomiting my concern about any and her abdominal obstruction versus infection verses worsening spread of his pancreatic cancer. He has told me in the past that he does not want to be on life support. Does not want to live on machines. He said he would aggressively fight the cancer until he could not. He says he says he today that today his his amount of pain in after he heard the news that he would be willing to come into the hospital for pain control and management which will provide. Discussed with family they were all on board with his wishes. 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 Will provide oxygen will provide a scopolamine patch. We elected at their wishes to no longer provide further laboratory evaluation x-ray evaluation and proceed with ongoing management of his pain. Due to the severity of the patient's vital signs illness I do not think it will be long before the patient passes. Patient and family were agreement with this plan.
--- NOTE | 2018-01-08 18:29 | ED_ITS ---
HPI - Abdominal Pain General Chief Complaint: Abdominal Pain Stated Complaint: Pancreatic Cancer, Increased pain / confusion Time Seen by Provider: 01/08/18 16:08 Source: patient, family and EMS Mode of arrival: EMS History of Present Illness HPI narrative: Patient is a 72-year-old male with end-stage pancreatic cancer. He is brought in for increased abdominal pain. There is talk of hospice per family but he has not yet admitted to hospice. He had paracentesis 2 days ago with minimal relief, family feels like his abdomen has reaccumulated all the fluid quite quickly. He has had recurrent GI bleeding which she was sent down to [facility]. Family states that they think they have this under control. They deny any blood in stool or hematemesis. He seems to be declining rather quickly over the last 2 days. Today his pain is much more out of control he is hypotensive and tachycardic as well. Blood pressure for EMS systolic in the 60s of fluid was started. MD complaint: abdominal pain Related Data Home Medications Medication Instructions Recorded Confirmed Centrum Silver 1 tab PO Q DAY #0 08/15/11 12/21/17 [FISH OIL] 1,400 mg PO QDAY #0 08/15/11 12/21/17 aspirin 81 mg PO DAILY #0 08/15/11 12/21/17 ranitidine HCl 150 mg PO QDAYP PRN #0 04/28/16 12/21/17 Glucose: Home Monitor 1 ea MISCELLANEOUS 5XD 10/14/17 12/21/17 [place] 1 ea 5XD 10/14/17 12/21/17 dexamethasone 1 tab PO DIRECTED 10/14/17 12/21/17 insulin detemir U-100 [Levemir 45 units SQ QPM 10/14/17 12/21/17 FlexTouch U-100 Insuln] [id number] [Creon] 1 dose PO DIRECTED 10/14/17 12/21/17 lorazepam 0.5 mg PO DIRECTED 10/14/17 12/21/17 ondansetron 1 tab TRANSLINGUAL Q8H PRN 10/14/17 12/21/17 prochlorperazine maleate 1 tab PO Q6H PRN 10/14/17 12/21/17 pveqsa-klszcnlz-ghvcmqx 1 cap PO QD-TID PRN 10/30/17 12/21/17 36,000-114,000-180,000 unit capsule,delay rel polyethylene glycol 3350 17 17 gram PO DAILY gram 10/30/17 12/21/17 gram/dose oral powder polyethylene glycol powder each MISC 10/30/17 12/21/17 simethicone 125 mg capsule 125 mg PO BID-QID PRN 10/30/17 12/21/17 acetaminophen 500 mg tablet 500 mg PO Q4-6H PRN tab 12/21/17 12/21/17 bethanechol chloride 10 mg tablet 10 mg PO TID tab 12/21/17 12/21/17 finasteride 5 mg tablet 5 mg PO DAILY 12/21/17 12/21/17 hydrocodone 5 mg-acetaminophen 325 1 tab PO Q4-6H PRN 12/21/17 12/21/17 mg tablet Previous Rx's Medication Instructions Recorded fluticasone 2 spray INTRANASAL QDAY #1 bot 04/28/16 clotrimazole 1 gm TOPICAL BID #14.1 gm 12/07/16 Test Strips - Freestyle 0 item 5XD #450 05/05/17 lisinopril 20 mg PO QDAY #90 tab 05/05/17 metformin 1,000 mg PO BIDCC #180 tab 05/05/17 atorvastatin [Lipitor] 20 mg PO QDAY #90 tab 05/06/17 Lancets 0 dev SEE INSTRUCTIONS #450 05/08/17 tamsulosin 0.4 mg capsule 0.4 mg PO Q24H #30 cap 08/31/17 pantoprazole 40 mg tablet,delayed 40 mg PO BID #14 tab 11/04/17 release sucralfate 1 gram tablet 1 gram PO Q6H #28 tab 11/04/17 insulin aspart U-100 100 unit/mL 10 unit SUBCUT TID #15 ml 01/04/18 subcutaneous pen Allergies Allergy/AdvReac Type Severity Reaction Status Date / Time Sulfa (Sulfonamide Allergy Mild 40yrs ago, Verified 01/08/18 15:55 Antibiotics) unknown morphine AdvReac Hallucinati Verified 01/08/18 15:55 ng Review of Systems Review of Systems All systems reviewed & are unremarkable except as noted in HPI and below Constitutional Denies chills and Denies fatigue Cardiovascular Denies chest pain Gastrointestinal Gastrointestinal: Reports as per HPI and Reports abdominal pain Integumentary/Breasts Denies pruritus, Denies erythema, Denies rash and Denies wounds Neurologic Denies confusion Psychiatric Denies confusion Endocrine Denies fatigue [facility] Medical History Diabetes mellitus (Chronic ~2004) Fractures (Chronic ~2004) Hyperlipidemia (Chronic) Hypertension (Chronic) Recurrent sinusitis (Chronic) Shoulder pain (Chronic ~2013) Chicken pox (Resolved ~1955) Measles (Resolved ~1953) Mumps (Resolved ~1952) Rheumatic fever (Resolved ~1950) Surgical History Anesthesia (Resolved) Status post bunionectomy (Resolved ~1997) Tibial plateau fracture (Resolved ~2005) History of cataract removal with insertion of prosthetic lens Status post colonoscopy Family History: Reviewed 01/08/18 by Jonathan Estes MD Social History household members: spouse Smoking Status: Former smoker Exam Initial Vital Signs Initial Vital Signs: Vital Signs Temperature 96.7 F L 01/08/18 15:52 Pulse Rate 133 H 01/08/18 15:52 Respiratory Rate 32 H 01/08/18 15:52 Blood Pressure 82/56 L 01/08/18 15:52 Pulse Oximetry 95 01/08/18 15:52 Const General: cooperative, in distress (Appears in pain), frail appearing and ill appearing Orientation: alert and awake HENIA Head: normal to inspection and normocephalic Eyes General: appearance normal, both eyes and all related structures Neck Neck: normal visual inspection, full ROM and no meningeal signs Chest Chest: normal inspection of the chest Resp Effort & Inspection: normal respiratory effort Auscultation: clear to auscultation bilaterally Cardio Rate: tachycardic Heart Sounds: S1 normal and S2 normal GI Inspection: normal to inspection Palpation: ascites (Distended grossly tender) Skin General: no rashes or lesions noted, elasticity normal and turgor normal Neuro General: alert and awake Extrem General: normal to inspection and full ROM Course Orders Ordered: ED Orders 01/08/18 17:33 Education, smoking cessation ONGOING Hydromorphone HCl (Dilaudid) 0.5 mg IV Q2HR PRN PRN Reason: Pain, Moderate (4-6) Last Admin: 01/08/18 16:10 Dose: 0.5 mg HYDROMORPHONE CLINICAL RESOURCE COORDINATOR (Dilaudid 6 Mg/30 Ml) 6 mg in 30 mls @ 0.5 mls/hr IV Q8HR EMEKA Lorazepam (Ativan) 1 mg IV Q4HR PRN PRN Reason: Anxiety Naloxone HCl (Narcan) 0.2 mg IV Q2MIN PRN PRN Reason: Opiate Reversal Naloxone HCl (Narcan) 0.2 mg IV Q2MIN PRN; Protocol PRN Reason: Opiate Reversal Ondansetron HCl (Zofran) 4 mg IV Q6HR PRN PRN Reason: Nausea And Vomiting Discontinued Medications Ondansetron HCl (Zofran) 4 mg IV NOW ONE Stop: 01/08/18 16:12 Last Admin: 01/08/18 16:11 Dose: 4 mg Vital Signs - 8 hr 01/08/18 15:52 01/08/18 16:20 01/08/18 16:30 Temperature 96.7 F L Pulse Rate 133 H 131 H 128 H Respiratory Rate 32 H 28 H 32 H Blood Pressure 82/56 L Blood Pressure [Right Arm] 86/59 L 81/46 L Pulse Oximetry 95 98 01/08/18 16:45 01/08/18 17:00 01/08/18 17:12 Temperature Pulse Rate 122 H 123 H 125 H Respiratory Rate 32 H 31 H 22 Blood Pressure Blood Pressure [Right Arm] 92/51 L 67/45 L 76/42 L Pulse Oximetry 98 MDM - Abdominal Pain MDM Narrative Medical decision making narrative: Patient remains hypotensive tachycardic. Dilaudid does seem to make him more comfortable. I did speak with family about goals of care. Comfort only. They are aware of grave prognosis. Dr. Estes is in the ED to speak and evaluate patient. Discharge Plan Departure Patient Disposition: Admitted As Inpatient Clinical Impression: Metastasis from pancreatic cancer Discharge Date/Time: 01/08/18 17:22 Interventions: ED Discharge Assessment Last Done: 01/08/18 17:22 Admit Date/Time: 01/08/18 17:12 Admit Provider: Jonathan Estes
--- NOTE | 2018-01-08 19:04 | PC.ADMIT ---
Addendum entered by Evonne Lara R.N. 01/08/18 23:38: [facility] aware of pt needing transport. port de-accessed. pt in room. 2339- [facility] arrived. will notify pt family. Original Note: Addendum entered by Evonne Lara R.N. 01/08/18 22:44: PRECISION STRUCTURAL METAL FITTER pump stopped and fluids tko stopped at 2220. Original Note: Addendum entered by Evonne Lara R.N. 01/08/18 22:44: family requesting [facility]. pt son stated they had arrangements set up with them already. Original Note: Addendum entered by Evonne Lara R.N. 01/08/18 22:42: 2220- pt .family at bedside. Patient's , daughter, son and daughter in law were at bedside. notified at 2030. will complete after care as requested from family. Original Note: Addendum entered by Evonne Lara R.N. 01/08/18 21:28: family members to request when wanting vitals taken. medication rec completed- unknown. per nursing home admissions director - no need to verify, as pt is comfort care. Original Note: [email or web address] Admission Note: The patient,Goldy Marina,72 y/o, was given written information regarding hospital policies, unit procedures and contact persons. Patient's smoking status: Former smoker. Vital Signs - 8 hr 01/08/18 15:52 01/08/18 16:20 01/08/18 16:30 Temperature 96.7 F L Pulse Rate 133 H 131 H 128 H Respiratory Rate 32 H 28 H 32 H Blood Pressure 82/56 L Blood Pressure [Right Arm] 86/59 L 81/46 L Pulse Oximetry 95 98 01/08/18 16:45 01/08/18 17:00 01/08/18 17:12 Temperature Pulse Rate 122 H 123 H 125 H Respiratory Rate 32 H 31 H 22 Blood Pressure Blood Pressure [Right Arm] 92/51 L 67/45 L 76/42 L Pulse Oximetry 98 01/08/18 17:33 01/08/18 17:45 Temperature 98.0 F Pulse Rate 124 H Respiratory Rate 24 Blood Pressure 133/53 L Blood Pressure [Right Arm] Pulse Oximetry 96 96 Pt arrived to floor around 1730 with family. moved from stretcher to bed with slider board, tolerated ok as pt has extreme pain to abdomen. dr martinez in to see pt, orders written, stated to increase PRECISION STRUCTURAL METAL FITTER pump to whatever pt needs as to control pain. Pt vitals ok, on RA tachycardic. Pt family in room, completed admission assessment for pt. Pt prefers to lay on left side. discussed comfort measures, vitals, and plan of care. Pt family verbalized understanding. given blankets and instructions. Pt belongings and call light within reach. will continue to monitor.
[2018-01-08] MEDS: HYDROMORPHONE PCA 6 MG/30 ML PCA.VIAL IV (22:04)
--- NOTE | 2018-01-08 23:54 | PC.NURSE ---
Remains released to [facility]
--- NOTE | 2018-01-09 08:43 | PM.DS.1 ---
History of Present Illness Chief complaint: Pancreatic Cancer, Increased pain / confusion Narrative: 72-year-old male patient longstanding patient of mine over the last 12 years. Patient over the last year and a half was diagnosed with pancreatic cancer. He has undergone chemotherapy biliary stenting in treatment for this. Despite his maximal medical therapy with Oncology pancreatic specialist down at he has had quite a rough go lately. As of about a week ago. He has had increasing abdominal distension and significant abdominal pain. They elected no longer to treat with chemotherapy as he was too weak. His last paracentesis 48 hr ago provided minimal relief in his abdomen felt still painful and distended. Over the past 48 hr he has had difficulty with increasing pain increasing secretions coughing and phlegm. Today he became very weak and listless. His family states he was a little bit confused. He has had ongoing abdominal pain any now says it 7/10 on the pain scale. On my evaluation of the patient in the emergency room he is quite tachypneic. He is tachycardic. He has got a weak cough. And he is vomiting up by bile. His is at his bedside as well as his daughter son and [id number]. We have had a number of conversations in the past about his advance care wishes. And office visit 2 weeks ago patient at that time was not ready for hospice although we have had those ongoing discussions and have discussed multiple times his palliative care and wishes. Family care conference was initiated in the emergency room to discuss and determine what the best next plan for him is. Discussed about aggressive measures transfer the patient to be . They felt maybe this was not necessary as well as the patient. We discussed about the further evaluation with laboratory testing and x-ray testing IV fluids etc. They are also aware that his recent pancreatic specialist oncologist down a of told him that he has in the advanced stages of pancreatic cancer and they are running out of treatment options. After discussion with patient family and on review of his healthcare wishes. The election was made to proceed with hospitalization due to his significant secretions vomited up bile weakness and low blood pressure for further comfort which there and hot able to provide a home. Discharge Providers Date of admission: 01/08/18 17:12 Primary care physician: Jonathan Estes MD Discharge provider: Jonathan Estes MD Summary Discharge Diagnosis: Metastatic pancreatic cancer. Bowel obstruction with intra-abdominal catastrophe Diabetes type 2 Hyperlipidemia Hypertension Hospital Course: Patient has had pancreatic cancer for a year and a half. Patient underwent treatment with chemo. Pancreatic stenting. Had a difficult course with acute gastrointestinal bleeding. Attempted surgery. But patient had significant metastatic disease. Over the last few weeks he has had a significant decline in his health. He is brought into the emergency room because of some mental status changes. Significant abdominal pain and distention and bilious vomiting. After discussion with patient and family in reviewing of his care wishes. Patient was admitted to the hospital floor. He was hypotensive tachycardic. Appear to be obstructed and significant exquisite tender. Due to his bilis vomiting that most likely he had some type of abdominal instruction or and abdominal Ange or could asked her feet. After being admitted to the hospital. Things progressed rather rapidly and not many hours after admission he passed comfortably. Exam Vital Signs (past 8 hours): Oxygen Delivery Method Room Air Oxygen Flow Rate 0 Discharge Plan Discharge Plan Patient Disposition: Discharge comment: at 2220 Discharge Med Rec/Prescriptions Follow up/Referrals: Jonathan Estes MD [Primary Care Provider] - Discharge Data Primary Care Provider: Jonathan Estes Attending Provider: Jonathan Estes Admit Date/Time: 01/08/18 17:12 Discharges patient from system. Discharge Date/Time: 01/09/18 00:00 Quality VTE Deep Vein Thrombosis/Pulmonary Embolism Present on Admission: No
== END 2018-01-09 | disposition expired | DRG 374 ==
LOC: ED 16:23 → AC 17:13
PROVIDERS: Admitting Provider Family Medicine; Emergency Provider Emergency Medicine; PCP Family Medicine; Visit Provider Family Medicine
DX: C78.80 Secondary malignant neoplasm of unspecified digestive organ (principal); K83.1 Obstruction of bile duct; A41.9 Sepsis, unspecified organism; R65.21 Severe sepsis with septic shock; C25.9 Malignant neoplasm of pancreas, unspecified; C78.7 Secondary malignant neoplasm of liver and intrahepatic bile duct; I10 Essential (primary) hypertension; E11.9 Type 2 diabetes mellitus without complications; Z79.4 Long term (current) use of insulin; E78.5 Hyperlipidemia, unspecified; G89.3 Neoplasm related pain (acute) (chronic); Z51.5 Encounter for palliative care; Z87.891 Personal history of nicotine dependence
CPT/HCPCS: 36591; 96374; 96375; 99223; 99238; 99283; 99284; J1170; J2405